=== PATIENT | male | born 1995 | race Caucasian/White ===

== ENCOUNTER 2019-05-12 15:06 | Emergency (ER) | payer BC ==
[~2019-05-12] VITALS: Ht 170.2 cm; Wt 74.8 kg
[2019-05-12 15:07] VITALS: BP 132/79
--- NOTE | 2019-05-12 15:15 | NUR ---
ERMD AT BEDSIDE
--- NOTE | 2019-05-12 15:20 | NUR ---
C/O FEELING SOB X1 DAY. PT STATES HE THINKS HE GOT A CHIP STUCK IN HIS THROAT. O2 SAT RA IS 98%. NO ACCESORY MUSCLE USE NOTED, BREATHING IS EVEN AND UNLABORED. PT DENIES OTHER SYMPTOMS. PT PLACED ON BEDSIDE O2 MONITOR. SIDE RAIL UP X1, BED IN LOW POSITION
[2019-05-12] MEDS ORDERED: LIDOCAINE VISCOUS 2% 20 ML UDC PO ONE (15:30)
--- NOTE | 2019-05-12 16:43 | NUR ---
PT RESTING IN BED, PLAYING ON PHONE AT THIS TIME
[2019-05-12 17:05] VITALS: BP 132/79
--- NOTE | 2019-05-12 17:05 | NUR ---
Patient discharged with v/s stable. Written and verbal after care instructions given and explained. Patient verbalized understanding. Ambulatory with steady gait. All questions addressed prior to discharge. Advised to follow up with PMD.
== END 2019-05-12 17:05 | disposition home or self-care (01) ==
LOC: MED 15:06
DX: T18.128A Food in esophagus causing other injury, initial encounter (principal); X58.XXXA Exposure to other specified factors, initial encounter; Y93.89 Activity, other specified; Y92.89 Other specified places as the place of occurrence of the external cause; Y99.8 Other external cause status
CPT/HCPCS: 70490; 99284